=== PATIENT | female | born 1995 | race Caucasian/White ===

== ENCOUNTER 2021-01-21 15:46 | Observation (INO) | payer OTHER, SELFPAY ==
[~2021-01-21] VITALS: Ht 162.6 cm; Wt 65.8 kg
[2021-01-21] MEDS ORDERED: BETAMETH ACET/BETAMETH NA PH 30 MG/5 ML VIAL IM SCH (16:45)
[2021-01-21 16:51] VITALS: BP 100/52
[2021-01-22] MEDS ORDERED: URSO300C14 PO (17:25)
== END 2021-01-21 18:25 | disposition home or self-care (01) ==
LOC: MLD 15:46
PROVIDERS: ADMIT Obstetrics & Gynecology; ATTEND Obstetrics & Gynecology
DX: O62.9 Abnormality of forces of labor, unspecified (principal); Z3A.36 36 weeks gestation of pregnancy
CPT/HCPCS: 59025; 81000; 96372; G0378; J0702

== ENCOUNTER 2021-01-22 16:34 | Observation (INO) | payer OTHER, SELFPAY ==
[~2021-01-22] VITALS: Ht 162.6 cm; Wt 64.4 kg
[2021-01-22] MEDS ORDERED: URSO300C14 PO (17:25)
[2021-01-22] MEDS ORDERED: BETAMETH ACET/BETAMETH NA PH 30 MG/5 ML VIAL IM SCH (17:30)
== END 2021-01-22 18:25 | disposition home or self-care (01) ==
LOC: MLD 16:34
PROVIDERS: ADMIT Obstetrics & Gynecology; ATTEND Obstetrics & Gynecology
DX: O26.613 Liver and biliary tract disorders in pregnancy, third trimester (principal); K83.1 Obstruction of bile duct; O62.9 Abnormality of forces of labor, unspecified; Z3A.35 35 weeks gestation of pregnancy
CPT/HCPCS: 96372; G0378; J0702

== ENCOUNTER 2021-01-25 22:06 | Inpatient (IN) | payer OTHER, SELFPAY ==
[~2021-01-25] VITALS: Ht 162.6 cm; Wt 64.4 kg
[~2021-01-25 22:06] MED LIST: URSO300C14 PO
[2021-01-25] MEDS ORDERED: ONDANSETRON 4 MG/2 ML VIAL IVP PRN (22:45)
[2021-01-25] MEDS ORDERED: MORPHINE SULFATE 5 MG/ML VIAL IVP PRN (22:45)
[2021-01-25] MEDS ORDERED: OXYTOCIN 20 UNITS in LACTATED RINGERS 1,000 ML IV SCH (22:45)
[2021-01-25] MEDS ORDERED: METHYLERGONOVINE 0.2 MG/ML AMP IM PRN (22:45)
[2021-01-25] MEDS ORDERED: MISOPROSTOL 25 MCG TAB VG PRN (22:45)
[2021-01-25 23:13] LABS: BASOPHILS % (AUTO) 0.2 % (0.0-2.0); EOSINOPHILS % (AUTO) 0.5 % (0.0-4.0); HEMATOCRIT 31.7 % (36-48); HEMOGLOBIN 10.7 g/dL (12.0-16.0); LYMPHOCYTES # (AUTO) 2.1 K/uL (2.5-16.5); LYMPHOCYTES % (AUTO) 26.6 % (20.5-51.1); MEAN CORPUSCULAR HEMOGLOBIN 28 pg (27-31); MEAN CORPUSCULAR HGB CONC 34 g/dL (33-37); MEAN CORPUSCULAR VOLUME 83.5 fL (80-94); MONOCYTES # (AUTO) 0.6 K/uL (0.8-1.0); MONOCYTES % (AUTO) 7.9 % (1.7-9.3); NEUTROPHILS # (AUTO) 5.1 K/uL (1.8-7.7); NEUTROPHILS % (AUTO) 64.8 % (42.2-75.2); PLATELET COUNT (AUTO) 174 K/uL (140-450); RED CELL DISTRIBUTION WIDTH 20.3 % (11.6-13.7); WHITE BLOOD COUNT (AUTO) 7.8 K/uL (4.8-10.8)
[2021-01-25] MEDS: LACTATED RINGERS 1,000 ML IV SCH (23:18)
[2021-01-25 23:35] LABS: ALBUMIN 2.5 g/dL (3.4-5.0); ANION GAP 13.4 (8-16); CREATININE 0.6 mg/dL (0.6-1.3); POTASSIUM 3.4 mmol/L (3.5-5.1); TOTAL BILIRUBIN 0.2 mg/dL (0.0-1.0)
[2021-01-25 23:38] LABS: APPEARANCE,URINE CLEAR (CLEAR); BILIRUBIN,URINE NEGATIVE (NEGATIVE); BLOOD, URINE NEGATIVE (NEGATIVE); COLOR,URINE YELLOW (YELLOW); LEUKOCYTE ESTERASE ,URINE NEGATIVE (NEGATIVE); NITRITE, URINE NEGATIVE (NEGATIVE); PH,URINE 6.5 (5.0-9.0); UGLUCOSE NEGATIVE (NEGATIVE)
[2021-01-26 02:11] VITALS: BP 107/61
[2021-01-26] MEDS: LACTATED RINGERS 1,000 ML IV SCH ×2 (07:20→12:27)
[2021-01-26] MEDS ORDERED: OXYTOCIN 20 UNITS/LR PREMIX 1,000 ML IV ONE (08:15)
--- NOTE | 2021-01-26 08:27 | NUR ---
PATIENT HAS BEEN SCREENED AND CATEGORIZED LOW NUTRITION RISK. PATIENT WILL BE SEEN WITHIN 7 DAYS OF ADMISSION. 02/01/[address]
[2021-01-26] MEDS ORDERED: LIDOCAINE 1% 500 MG/50 ML VIAL ONE (18:51)
[2021-01-26] MEDS ORDERED: SIMETHICONE 80 MG TAB.CHEW PO PRN (20:35)
[2021-01-26] MEDS ORDERED: BENZOCAINE/MENTHOL 20%-0.5% 60 GM CAN TP PRN (20:35)
[2021-01-26] MEDS ORDERED: METHYLERGONOVINE 0.2 MG TAB PO PRN (20:35)
[2021-01-26] MEDS ORDERED: MEASLES, MUMPS, AND RUBELLA 1 VIAL SQVAC PRN (20:35)
[2021-01-26] MEDS ORDERED: OXYTOCIN 10 UNITS/ML VIAL IM PRN (20:35)
[2021-01-26] MEDS ORDERED: METHYLERGONOVINE 0.2 MG/ML AMP IM PRN (20:35)
[2021-01-26] MEDS ORDERED: IBUPROFEN 600 MG TAB PO PRN (20:35)
[2021-01-26] MEDS ORDERED: DOCUSATE SODIUM 100 MG GELCAP PO PRN (20:35)
[2021-01-26] MEDS ORDERED: IBUPROFEN 800 MG TAB PO PRN (20:35)
[2021-01-26] MEDS ORDERED: bisacodyL 5 MG TABEC PO PRN (20:35)
[2021-01-27 08:43] LABS: HEMATOCRIT 34.4 % (36-48); HEMOGLOBIN 11.5 g/dL (12.0-16.0)
== END 2021-01-28 17:45 | disposition home or self-care (01) | DRG 805 ==
LOC: MLD 22:06 → MFCC 01-26 20:30
PROVIDERS: ADMIT Obstetrics & Gynecology; ATTEND Obstetrics & Gynecology
PROC: 10E0XZZ Delivery of Products of Conception, External Approach (ICD-10-PCS; principal; 2021-01-26)
PROC: 3E0P7VZ Introduction of Hormone into Female Reproductive, Via Natural or Artificial Opening (ICD-10-PCS; 2021-01-26)
PROC: 3E0134Z Introduction of Serum, Toxoid and Vaccine into Subcutaneous Tissue, Percutaneous Approach (ICD-10-PCS; 2021-01-26)
PROC: 3E0234Z Introduction of Serum, Toxoid and Vaccine into Muscle, Percutaneous Approach (ICD-10-PCS; 2021-01-26)
PROC: 0KQM0ZZ Repair Perineum Muscle, Open Approach (ICD-10-PCS; 2021-01-26)
DX: O26.62 Liver and biliary tract disorders in childbirth (principal); K83.1 Obstruction of bile duct; Z37.0 Single live birth; Z3A.37 37 weeks gestation of pregnancy; Z20.822 Contact with and (suspected) exposure to COVID-19; Z23 Encounter for immunization; O70.1 Second degree perineal laceration during delivery
CPT/HCPCS: 36415; 59200; 59409; 76815; 80053; 81003; 85018; 85025; 86592; 86886; 86900; 86901; 90707; 96361; 96365; 96366; J2001; J2590; J7120